=== PATIENT | female | born 1945 | race Two or more races ===

== ENCOUNTER 2021-09-18 07:06 | Inpatient (IN) | payer MEDICARE, MEDICAID ==
[~2021-09-18] VITALS: Ht 160 cm; Wt 85.0 kg
[2021-09-18] MEDS ORDERED: METO25 PO (07:26)
[2021-09-18] MEDS ORDERED: NIFE10 PO (07:26)
[2021-09-18] MEDS ORDERED: LOSA-382 PO (07:26)
[2021-09-18 07:39] LABS: BASOPHILS % (AUTO) 0.7 % (0.0-2.0); EOSINOPHILS % (AUTO) 1.9 % (1.0-6.0); HEMOGLOBIN 13.8 g/dL (12.0-16.0); LYMPHOCYTES # (AUTO) 2.3 K/uL (1.0-4.8); LYMPHOCYTES % (AUTO) 33.3 % (22.0-44.0); MEAN CORPUSCULAR HEMOGLOBIN 28.7 pg (26.0-34.0); MEAN CORPUSCULAR HGB CONC 34.4 G/dL (31.0-37.0); MEAN CORPUSCULAR VOLUME 83 fL (80-100); MONOCYTES # (AUTO) 0.6 K/uL (0.1-1.0); MONOCYTES % (AUTO) 8.7 % (2.0-9.0); NEUTROPHILS # (AUTO) 3.9 K/uL (1.8-7.7); NEUTROPHILS % (AUTO) 55.4 % (40.0-70.0); PLATELET COUNT (AUTO) 181 K/uL (150-450); RED CELL DISTRIBUTION WIDTH 13.8 % (11.5-14.5)
[2021-09-18 07:48] LABS: ANION GAP 7 mmol/L (8-16); CALCIUM, TOTAL 9.2 mg/dL (8.8-10.5); CARBON DIOXIDE 25 mmol/L (22-29); CHLORIDE 105 mmol/L (98-107); CREATININE 0.62 mg/dL (0.60-1.30); GLUCOSE,RANDOM 127 mg/dL (70-110); POTASSIUM 3.6 mmol/L (3.5-5.1); SODIUM SERUM 137 mmol/L (136-145); UREA NITROGEN, BLOOD 18 mg/dL (7-18)
[2021-09-18 07:49] LABS: GLOMERULAR FILTR. RATE CALC > 60 mL/min (>60)
[2021-09-18 07:54] LABS: ALANINE AMINOTRANSFERASE 21 U/L (12-78); ALBUMIN 3.8 g/dL (3.4-5.0); ALKALINE PHOSPHATASE 100 U/L (46-116); ASPARTATE AMINOTRANSFERASE 19 U/L (15-37); BILIRUBIN,TOTAL 0.4 mg/dL (0.1-1.0); CREATINE KINASE, TOTAL ONLY 47 U/L (26-192); TOTAL PROTEIN, SERUM 7.2 g/dL (6.4-8.2)
[2021-09-18 08:05] LABS: B-TYPE NATRIURETIC PEPTIDE 199 pg/mL (0-100)
[2021-09-18 08:17] LABS: COVID AG,FIA SOURCE NASOPHARYNGEAL
[2021-09-18 08:21] LABS: PROTHROMBIN TIME 10.3 SEC (9.4-11.6)
[2021-09-18] MEDS ORDERED: IOHEXOL 300 MG/ML 150 ML VIAL ONE ×2 (08:58→11:32)
[2021-09-18] MEDS ORDERED: IOHEXOL 300 MG/ML 100 ML VIAL ONE (08:58)
[2021-09-18] MEDS ORDERED: SODIUM BICARBONATE 50 MEQ/50 ML VIAL ONE (08:58)
[2021-09-18] MEDS ORDERED: IOHEXOL 300 MG/ML 50 ML VIAL ONE (08:58)
[2021-09-18] MEDS ORDERED: LIDOCAINE/PF 1% 30 ML VIAL ONE ×2 (08:58→10:30)
[2021-09-18] MEDS ORDERED: HEPARIN SODIUM 1000 UNITS/NS 1,000 ML ONE (08:58)
[2021-09-18] MEDS ORDERED: ACETAMINOPHEN 325 MG TABLET PO PRN ×2 (09:00→13:00)
[2021-09-18] MEDS ORDERED: 0.9% SODIUM CHLORIDE 10 ML SYRINGE IVP PRN (09:00)
[2021-09-18] MEDS ORDERED: ONDANSETRON HCL 4 MG/2 ML VIAL IVP PRN ×2 (09:00→13:00)
[2021-09-18 09:10] VITALS: BP 190/87
[2021-09-18] MEDS ORDERED: MIDAZOLAM HCL 2 MG/2 ML VIAL ONE ×2 (09:18→11:35)
[2021-09-18] MEDS ORDERED: FentaNYL CITRATE PF 100 MCG/2 ML VIAL ONE ×3 (09:18→12:04)
[2021-09-18] MEDS ORDERED: FentaNYL CITRATE PF 100 MCG/2 ML VIAL IVP ONE ×9 (09:30→12:45)
[2021-09-18] MEDS ORDERED: LIDOCAINE 1% 30 ML/SOD BICARB 8.4% 4 ML SQ ONE ×2 (09:30→10:45)
[2021-09-18] MEDS ORDERED: SODIUM CHLORIDE 0.9% 500 ML IV ONE (09:30)
[2021-09-18] MEDS ORDERED: IOHEXOL 300 MG/ML 150 ML VIAL ICOR ONE (09:30)
[2021-09-18] MEDS ORDERED: MIDAZOLAM HCL 2 MG/2 ML VIAL IVP ONE ×7 (09:30→12:30)
[2021-09-18] MEDS ORDERED: HEPARIN SODIUM 1000 UNITS/NS 1,000 ML IARTER ONE (09:30)
[2021-09-18] MEDS ORDERED: HEPARIN SODIUM,PORCINE 5,000 UNITS/ML VIAL IVP ONE ×6 (09:45→12:00)
[2021-09-18] MEDS ORDERED: NITROGLYCERIN 50 MG/D5% WATER 250 ML ONE (09:57)
[2021-09-18] MEDS ORDERED: VERAPAMIL HCL 2.5 MG/ML 2 ML VIAL ONE (09:59)
[2021-09-18] MEDS ORDERED: HEPARIN SODIUM 1000 UNITS/NS 500 ML ONE (11:19)
[2021-09-18] MEDS ORDERED: NITROGLYCERIN 400 MCG/SUBLINGUAL SPRAY 4.9 GM BOTTLE SL ONE ×3 (12:22→12:30)
[2021-09-18] MEDS ORDERED: IOHEXOL 300 MG/ML 100 ML VIAL ICOR ONE (12:30)
[2021-09-18] MEDS ORDERED: TICAGRELOR 90 MG TABLET PO ONE (12:45)
[2021-09-18] MEDS ORDERED: MORPHINE SULFATE 2 MG/ML SYRINGE IVP PRN (13:00)
[2021-09-18] MEDS ORDERED: ZOLPIDEM TARTRATE 5 MG TABLET PO PRN (13:00)
[2021-09-18] MEDS ORDERED: HYDROCODONE/ACETAMINOPHEN 5-325 MG TABLET PO PRN (13:00)
[2021-09-18] MEDS ORDERED: BISACODYL 10 MG RECTAL RECTAL SUPPOSITORY PR PRN (13:00)
[2021-09-18] MEDS ORDERED: MAGNESIUM HYDROXIDE SUSPENSION 30 ML UDCUP PO PRN (13:00)
[2021-09-18 15:06] VITALS: BP 149/71
[2021-09-18 19:35] VITALS: BP 136/64
[2021-09-18] MEDS: TICAGRELOR 90 MG TABLET PO SCH (20:36)
[2021-09-18] MEDS: DOCUSATE SODIUM 100 MG CAPSULE PO SCH (20:36)
[2021-09-18] MEDS ORDERED: TICAGRELOR 90 MG TABLET PO SCH (21:00)
[2021-09-18 23:40] VITALS: BP 150/76
[2021-09-19 03:34] VITALS: BP 123/50
[2021-09-19 06:34] LABS: BASOPHILS % (AUTO) 0.3 % (0.0-2.0); EOSINOPHILS % (AUTO) 0.7 % (1.0-6.0); HEMATOCRIT 33.5 % (36-46); HEMOGLOBIN 11.3 g/dL (12.0-16.0); LYMPHOCYTES # (AUTO) 2.4 K/uL (1.0-4.8); LYMPHOCYTES % (AUTO) 27.9 % (22.0-44.0); MEAN CORPUSCULAR HEMOGLOBIN 28.4 pg (26.0-34.0); MEAN CORPUSCULAR HGB CONC 33.9 G/dL (31.0-37.0); MEAN CORPUSCULAR VOLUME 84 fL (80-100); MONOCYTES # (AUTO) 0.7 K/uL (0.1-1.0); MONOCYTES % (AUTO) 7.9 % (2.0-9.0); NEUTROPHILS # (AUTO) 5.4 K/uL (1.8-7.7); NEUTROPHILS % (AUTO) 63.2 % (40.0-70.0); PLATELET COUNT (AUTO) 149 K/uL (150-450); RED BLOOD CELL COUNT(AUTO) 3.99 MIL/uL (4.00-5.20); RED CELL DISTRIBUTION WIDTH 14.2 % (11.5-14.5)
[2021-09-19 06:53] LABS: ALANINE AMINOTRANSFERASE 22 U/L (12-78); ALBUMIN 3.1 g/dL (3.4-5.0); ALKALINE PHOSPHATASE 77 U/L (46-116); ANION GAP 9 mmol/L (8-16); ASPARTATE AMINOTRANSFERASE 31 U/L (15-37); BILIRUBIN,TOTAL 0.6 mg/dL (0.1-1.0); CALCIUM, TOTAL 8.7 mg/dL (8.8-10.5); CARBON DIOXIDE 28 mmol/L (22-29); CHLORIDE 103 mmol/L (98-107); CREATININE 0.67 mg/dL (0.60-1.30); GLOMERULAR FILTR. RATE CALC > 60 mL/min (>60); GLUCOSE,RANDOM 128 mg/dL (70-110); POTASSIUM 3.7 mmol/L (3.5-5.1); SODIUM SERUM 140 mmol/L (136-145); TOTAL PROTEIN, SERUM 6.3 g/dL (6.4-8.2); UREA NITROGEN, BLOOD 16 mg/dL (7-18)
[2021-09-19 07:31] VITALS: BP 147/70
[2021-09-19] MEDS: DOCUSATE SODIUM 100 MG CAPSULE PO SCH (07:55)
[2021-09-19] MEDS: TICAGRELOR 90 MG TABLET PO SCH (07:55)
[2021-09-19] MEDS ORDERED: ATORVASTATIN CALCIUM 40 MG TABLET PO SCH (09:00)
[2021-09-19] MEDS ORDERED: ASPIRIN 81 MG CHEWABLE TABLET PO SCH (09:00)
[2021-09-19] MEDS ORDERED: PANTOPRAZOLE SODIUM 40 MG DR TABLET PO SCH (09:00)
[2021-09-19 11:23] VITALS: BP 147/73
[2021-09-19 15:01] VITALS: BP 147/90
[2021-09-19] MEDS ORDERED: ATOR40TA28 PO (15:28)
[2021-09-19] MEDS ORDERED: TICA90TA PO (15:29)
[2021-09-19] MEDS ORDERED: ASPI-1450 PO (15:29)
== END 2021-09-19 16:30 | disposition home or self-care (01) | DRG 215 ==
LOC: EMS 07:08 → EDSEX 07:08 → 5N 09:02
PROVIDERS: ADMIT Internal Medicine; ATTEND Internal Medicine
PROC: 4A023N7 Measurement of Cardiac Sampling and Pressure, Left Heart, Percutaneous Approach (ICD-10-PCS; principal; 2021-09-18)
PROC: 02HA3RZ Insertion of Short-term External Heart Assist System into Heart, Percutaneous Approach (ICD-10-PCS; 2021-09-18)
PROC: 5A0221D Assistance with Cardiac Output using Impeller Pump, Continuous (ICD-10-PCS; 2021-09-18)
PROC: 02C13ZZ Extirpation of Matter from Coronary Artery, Two Arteries, Percutaneous Approach (ICD-10-PCS; 2021-09-18)
PROC: 027135Z Dilation of Coronary Artery, Two Arteries with Two Drug-eluting Intraluminal Devices, Percutaneous Approach (ICD-10-PCS; 2021-09-18)
PROC: B2111ZZ Fluoroscopy of Multiple Coronary Arteries using Low Osmolar Contrast (ICD-10-PCS; 2021-09-18)
PROC: B41F1ZZ Fluoroscopy of Right Lower Extremity Arteries using Low Osmolar Contrast (ICD-10-PCS; 2021-09-18)
PROC: B41C1ZZ Fluoroscopy of Pelvic Arteries using Low Osmolar Contrast (ICD-10-PCS; 2021-09-18)
PROC: B241ZZ3 Ultrasonography of Multiple Coronary Arteries, Intravascular (ICD-10-PCS; 2021-09-18)
DX: I25.110 Atherosclerotic heart disease of native coronary artery with unstable angina pectoris (principal); E66.9 Obesity, unspecified; I11.9 Hypertensive heart disease without heart failure; E78.5 Hyperlipidemia, unspecified; M19.90 Unspecified osteoarthritis, unspecified site; I10 Essential (primary) hypertension; Z20.822 Contact with and (suspected) exposure to COVID-19; I35.0 Nonrheumatic aortic (valve) stenosis; Z96.659 Presence of unspecified artificial knee joint; E78.00 Pure hypercholesterolemia, unspecified; Z91.013 Allergy to seafood; Z68.33 Body mass index [BMI] 33.0-33.9, adult; Z79.899 Other long term (current) drug therapy; Z95.5 Presence of coronary angioplasty implant and graft
CPT/HCPCS: 33990; 37229; 37236; 71045; 75960; 80053; 82550; 83880; 84484; 85025; 85610; 85730; 92920; 92921; 92928; 93005; 99285; J1644; J2250; J3010; J3490; Q9967; 36415-L1; 36415-TC; Z7610

== ENCOUNTER 2022-05-23 16:47 | Inpatient (IN) | payer MEDICARE, OTHER ==
[~2022-05-23] VITALS: Ht 162.6 cm; Wt 80.0 kg
[~2022-05-23 16:47] MED LIST: ASPI-1450 PO; ATOR40TA28 PO; LOSA-382 PO; METO25 PO; TICA90TA PO
[2022-05-23] MEDS ORDERED: SODIUM CHLORIDE 0.9% 1,000 ML IV ONE (17:45)
[2022-05-23] MEDS ORDERED: MORPHINE SULFATE 2 MG/ML SYRINGE IVP ONE (17:45)
[2022-05-23 18:12] LABS: COVID AG,FIA SOURCE NASOPHARYNGEAL
[2022-05-23 18:14] LABS: BASOPHILS % (AUTO) 0.5 % (0.0-2.0); EOSINOPHILS % (AUTO) 0.6 % (1.0-6.0); LYMPHOCYTES # (AUTO) 2.8 K/uL (1.0-4.8); MEAN CORPUSCULAR HEMOGLOBIN 26.1 pg (26.0-34.0); MEAN CORPUSCULAR HGB CONC 32.3 G/dL (31.0-37.0); MEAN CORPUSCULAR VOLUME 81 fL (80-100); MONOCYTES # (AUTO) 0.7 K/uL (0.1-1.0); MONOCYTES % (AUTO) 7.5 % (2.0-9.0); NEUTROPHILS # (AUTO) 5.4 K/uL (1.8-7.7); NEUTROPHILS % (AUTO) 60.4 % (40.0-70.0); PLATELET COUNT (AUTO) 387 K/uL (150-450); RED BLOOD CELL COUNT(AUTO) 4.19 MIL/uL (4.00-5.20); RED CELL DISTRIBUTION WIDTH 15.9 % (11.5-14.5)
[2022-05-23 18:24] LABS: ANION GAP 7 mmol/L (8-16); CALCIUM, TOTAL 8.8 mg/dL (8.8-10.5); CARBON DIOXIDE 28 mmol/L (22-29); CHLORIDE 97 mmol/L (98-107); CREATININE 0.61 mg/dL (0.60-1.30); GLOMERULAR FILTR. RATE CALC > 60 mL/min (>60); GLUCOSE,RANDOM 145 mg/dL (70-110); POTASSIUM 3.7 mmol/L (3.5-5.1); SODIUM SERUM 132 mmol/L (136-145); UREA NITROGEN, BLOOD 25 mg/dL (7-18)
[2022-05-23 18:30] LABS: ALANINE AMINOTRANSFERASE 12 U/L (12-78); ALBUMIN 2.2 g/dL (3.4-5.0); ALKALINE PHOSPHATASE 114 U/L (46-116); ASPARTATE AMINOTRANSFERASE 21 U/L (15-37); BILIRUBIN,TOTAL 0.5 mg/dL (0.1-1.0); TOTAL PROTEIN, SERUM 6.6 g/dL (6.4-8.2)
[2022-05-23] MEDS ORDERED: MORPHINE SULFATE 2 MG/ML SYRINGE IVP PRN (19:15)
[2022-05-23] MEDS ORDERED: ONDANSETRON HCL 4 MG/2 ML VIAL IVP PRN ×2 (19:15→20:45)
[2022-05-23] MEDS ORDERED: MAGNESIUM HYDROXIDE SUSPENSION 30 ML UDCUP PO PRN (20:45)
[2022-05-23] MEDS ORDERED: ZOLPIDEM TARTRATE 5 MG TABLET PO PRN (20:45)
[2022-05-23] MEDS ORDERED: BISACODYL 10 MG RECTAL RECTAL SUPPOSITORY PR PRN (20:45)
[2022-05-23] MEDS: DOCUSATE SODIUM 100 MG CAPSULE PO SCH (21:00)
[2022-05-23] MEDS: ATORVASTATIN CALCIUM 40 MG TABLET PO SCH (21:53)
[2022-05-23 23:46] VITALS: BP 137/65
[2022-05-23] MEDS: HEPARIN SODIUM,PORCINE 5,000 UNITS/ML VIAL SQ SCH (23:47)
[2022-05-23] MEDS: MORPHINE SULFATE 2 MG/ML SYRINGE IVP PRN (23:48)
[2022-05-24 04:55] VITALS: BP 120/58
[2022-05-24] MEDS: HEPARIN SODIUM,PORCINE 5,000 UNITS/ML VIAL SQ SCH ×3 (08:43→23:14)
[2022-05-24] MEDS: METOPROLOL TARTRATE 25 MG TABLET PO SCH (08:43)
[2022-05-24] MEDS: DOCUSATE SODIUM 100 MG CAPSULE PO SCH ×2 (08:43→21:09)
[2022-05-24] MEDS: ASPIRIN 81 MG CHEWABLE TABLET PO SCH (08:43)
[2022-05-24] MEDS: LOSARTAN POTASSIUM 50 MG TABLET PO SCH (08:43)
[2022-05-24] MEDS: PANTOPRAZOLE SODIUM 40 MG DR TABLET PO SCH (08:44)
[2022-05-24] MEDS: MORPHINE SULFATE 2 MG/ML SYRINGE IVP PRN ×3 (08:54→21:40)
[2022-05-24 11:14] VITALS: BP 100/50
[2022-05-24 12:28] LABS: BASOPHILS % (AUTO) 0.6 % (0.0-2.0); EOSINOPHILS % (AUTO) 0.6 % (1.0-6.0); HEMATOCRIT 31.3 % (36-46); HEMOGLOBIN 10.2 g/dL (12.0-16.0); LYMPHOCYTES # (AUTO) 1.9 K/uL (1.0-4.8); LYMPHOCYTES % (AUTO) 29.4 % (22.0-44.0); MEAN CORPUSCULAR HEMOGLOBIN 26.2 pg (26.0-34.0); MEAN CORPUSCULAR HGB CONC 32.5 G/dL (31.0-37.0); MEAN CORPUSCULAR VOLUME 81 fL (80-100); MONOCYTES # (AUTO) 0.6 K/uL (0.1-1.0); MONOCYTES % (AUTO) 8.6 % (2.0-9.0); NEUTROPHILS % (AUTO) 60.8 % (40.0-70.0); PLATELET COUNT (AUTO) 349 K/uL (150-450); RED BLOOD CELL COUNT(AUTO) 3.88 MIL/uL (4.00-5.20); RED CELL DISTRIBUTION WIDTH 15.8 % (11.5-14.5)
[2022-05-24 12:41] LABS: ANION GAP 6 mmol/L (8-16); CALCIUM, TOTAL 8.7 mg/dL (8.8-10.5); CARBON DIOXIDE 29 mmol/L (22-29); CHLORIDE 102 mmol/L (98-107); CREATININE 0.52 mg/dL (0.60-1.30); GLOMERULAR FILTR. RATE CALC > 60 mL/min (>60); GLUCOSE,RANDOM 120 mg/dL (70-110); POTASSIUM 3.6 mmol/L (3.5-5.1); SODIUM SERUM 137 mmol/L (136-145); UREA NITROGEN, BLOOD 12 mg/dL (7-18)
[2022-05-24] MEDS: HYDROCODONE/ACETAMINOPHEN 5-325 MG TABLET PO PRN ×2 (13:54→18:39)
[2022-05-24 15:26] VITALS: BP 114/66
[2022-05-24 20:00] VITALS: BP 120/55
[2022-05-24] MEDS: ATORVASTATIN CALCIUM 40 MG TABLET PO SCH (21:09)
[2022-05-24] MEDS: DOXYCYCLINE HYCLATE 100 MG TABLET PO SCH (21:09)
[2022-05-24] MEDS: RINGERS SOLUTION,LACTATED 1,000 ML IV SCH (21:10)
[2022-05-24] MEDS ORDERED: SODIUM CHLORIDE 0.9% IRRIG BTL 1,000 ML IRRIG ONE (21:45)
[2022-05-25] VITALS: BP 128/60
[2022-05-25] MEDS: MORPHINE SULFATE 2 MG/ML SYRINGE IVP PRN ×2 (02:02→06:23)
[2022-05-25 04:00] VITALS: BP 140/63
[2022-05-25] MEDS: RINGERS SOLUTION,LACTATED 1,000 ML IV SCH ×2 (05:57→18:41)
[2022-05-25] MEDS ORDERED: RINGERS SOLUTION,LACTATED 1,000 ML IV ONE (06:47)
[2022-05-25] MEDS ORDERED: BUPIVACAINE LIPOSOME/PF 1.3%-13.3MG/ML SUSPENSION 20 ML VIAL INJ ONE (07:15)
[2022-05-25] MEDS ORDERED: TRANEXAMIC ACID 1,000 MG in DEXTROSE 5%-WATER 50 ML IV ONE (07:15)
[2022-05-25] MEDS ORDERED: VANCOMYCIN HCL 1 GM/VIAL ONE ×2 (07:16)
[2022-05-25] MEDS ORDERED: BUPIVACAINE HCL/PF 0.5% 30 ML VIAL ONE (07:17)
[2022-05-25] MEDS ORDERED: SODIUM CL IRRIG SOLN BAG 3,000 ML IRRIG ONE (07:17)
[2022-05-25] MEDS ORDERED: LIDOCAINE/PF 1% 30 ML VIAL ONE (07:17)
[2022-05-25] MEDS ORDERED: CeFAZolin 2 GM/DEXTROSE 50 ML IV ONE (07:30)
[2022-05-25] MEDS: HEPARIN SODIUM,PORCINE 5,000 UNITS/ML VIAL SQ SCH ×3 (08:00→23:08)
[2022-05-25] MEDS ORDERED: MEPERIDINE-PF 25 MG/ML VIAL IVP PRN (08:45)
[2022-05-25] MEDS ORDERED: FentaNYL CITRATE PF 100 MCG/2 ML VIAL IVP PRN (08:45)
[2022-05-25] MEDS ORDERED: HYDROmorphone HCL 2 MG/ML SYRINGE IVP PRN (08:45)
[2022-05-25] MEDS: LOSARTAN POTASSIUM 50 MG TABLET PO SCH (09:00)
[2022-05-25] MEDS: METOPROLOL TARTRATE 25 MG TABLET PO SCH (09:00)
[2022-05-25] MEDS: PANTOPRAZOLE SODIUM 40 MG DR TABLET PO SCH (09:00)
[2022-05-25] MEDS: DOXYCYCLINE HYCLATE 100 MG TABLET PO SCH ×2 (09:00→20:36)
[2022-05-25] MEDS: ASPIRIN 81 MG CHEWABLE TABLET PO SCH (09:00)
[2022-05-25] MEDS: DOCUSATE SODIUM 100 MG CAPSULE PO SCH ×2 (09:00→20:36)
[2022-05-25] MEDS ORDERED: FentaNYL CITRATE PF 100 MCG/2 ML VIAL ONE (10:22)
[2022-05-25] MEDS: CeFAZolin 1 GM/DEXTROSE 50 ML IV SCH ×2 (11:00→18:44)
[2022-05-25 12:25] VITALS: BP 108/61
[2022-05-25 16:08] VITALS: BP 104/62
[2022-05-25 19:46] VITALS: BP 118/64
[2022-05-25] MEDS: OXYGEN THERAPY IH SCH (20:35)
[2022-05-25] MEDS: ATORVASTATIN CALCIUM 40 MG TABLET PO SCH (20:36)
[2022-05-26] VITALS: BP 122/62
[2022-05-26] MEDS: RINGERS SOLUTION,LACTATED 1,000 ML IV SCH ×3 (01:05→22:01)
[2022-05-26] MEDS: MORPHINE SULFATE 2 MG/ML SYRINGE IVP PRN ×5 (01:08→22:39)
[2022-05-26] MEDS: CeFAZolin 1 GM/DEXTROSE 50 ML IV SCH ×2 (03:36→11:26)
[2022-05-26 04:07] VITALS: BP 104/51
[2022-05-26] MEDS ORDERED: MORPHINE SULFATE/PF 0.5 MG/ML 10 ML AMP IVP ONE (06:49)
[2022-05-26] MEDS ORDERED: MORPHINE SULFATE 4 MG/ML SYRINGE IVP ONE (06:49)
[2022-05-26] MEDS ORDERED: FentaNYL CITRATE PF 100 MCG/2 ML VIAL IVP ONE (06:49)
[2022-05-26 08:03] VITALS: BP 117/78
[2022-05-26] MEDS: OXYGEN THERAPY IH SCH ×2 (09:51→20:28)
[2022-05-26] MEDS: ASPIRIN 81 MG CHEWABLE TABLET PO SCH (09:52)
[2022-05-26] MEDS: LOSARTAN POTASSIUM 50 MG TABLET PO SCH (09:52)
[2022-05-26] MEDS: ACETAMINOPHEN 325 MG TABLET PO PRN ×2 (09:52→15:46)
[2022-05-26] MEDS: METOPROLOL TARTRATE 25 MG TABLET PO SCH (09:52)
[2022-05-26] MEDS: DOXYCYCLINE HYCLATE 100 MG TABLET PO SCH ×2 (09:52→20:27)
[2022-05-26] MEDS: PANTOPRAZOLE SODIUM 40 MG DR TABLET PO SCH (09:52)
[2022-05-26] MEDS: DOCUSATE SODIUM 100 MG CAPSULE PO SCH ×2 (09:52→20:27)
[2022-05-26] MEDS: HEPARIN SODIUM,PORCINE 5,000 UNITS/ML VIAL SQ SCH ×3 (09:53→23:49)
[2022-05-26 12:15] VITALS: BP 102/48
[2022-05-26 15:21] VITALS: BP 102/50
[2022-05-26 20:05] VITALS: BP 110/57
[2022-05-26] MEDS: ATORVASTATIN CALCIUM 40 MG TABLET PO SCH (20:27)
[2022-05-26 20:49] LABS: BASOPHILS % (AUTO) 0.3 % (0.0-2.0); EOSINOPHILS % (AUTO) 0.5 % (1.0-6.0); HEMATOCRIT 24.3 % (36-46); HEMOGLOBIN 7.9 g/dL (12.0-16.0); LYMPHOCYTES # (AUTO) 2.1 K/uL (1.0-4.8); LYMPHOCYTES % (AUTO) 27.7 % (22.0-44.0); MEAN CORPUSCULAR HEMOGLOBIN 26.5 pg (26.0-34.0); MEAN CORPUSCULAR HGB CONC 32.7 G/dL (31.0-37.0); MEAN CORPUSCULAR VOLUME 81 fL (80-100); MONOCYTES # (AUTO) 0.7 K/uL (0.1-1.0); MONOCYTES % (AUTO) 8.6 % (2.0-9.0); NEUTROPHILS # (AUTO) 4.8 K/uL (1.8-7.7); NEUTROPHILS % (AUTO) 62.9 % (40.0-70.0); PLATELET COUNT (AUTO) 323 K/uL (150-450); RED CELL DISTRIBUTION WIDTH 15.6 % (11.5-14.5)
[2022-05-27] VITALS (7 sets, daily range): BP systolic 104–132; BP diastolic 48–61
[2022-05-27] MEDS: ACETAMINOPHEN 325 MG TABLET PO PRN (03:15)
[2022-05-27] MEDS ORDERED: EPHEDrine SULFATE 50 MG/ML VIAL IM ONE (05:50)
[2022-05-27] MEDS ORDERED: 0.9% SODIUM CHLORIDE 10 ML VIAL IVP ONE (05:50)
[2022-05-27] MEDS ORDERED: DEXAMETHASONE SOD PHOS 4 MG/ML VIAL IVP ONE (05:50)
[2022-05-27] MEDS ORDERED: ROCURONIUM BROMIDE 10 MG/ML 5 ML VIAL IVP ONE (05:50)
[2022-05-27] MEDS ORDERED: LIDOCAINE/PF 2% 5 ML VIAL IM ONE (05:50)
[2022-05-27] MEDS ORDERED: PROPOFOL 1% 20 ML VIAL IVP ONE (05:50)
[2022-05-27] MEDS ORDERED: ONDANSETRON HCL 4 MG/2 ML VIAL IVP ONE (05:50)
[2022-05-27] MEDS: OXYGEN THERAPY IH SCH ×2 (08:00→20:25)
[2022-05-27] MEDS: RINGERS SOLUTION,LACTATED 1,000 ML IV SCH (09:35)
[2022-05-27] MEDS: ASPIRIN 81 MG CHEWABLE TABLET PO SCH (09:36)
[2022-05-27] MEDS: DOCUSATE SODIUM 100 MG CAPSULE PO SCH ×2 (09:36→20:25)
[2022-05-27] MEDS: LOSARTAN POTASSIUM 50 MG TABLET PO SCH (09:36)
[2022-05-27] MEDS: DOXYCYCLINE HYCLATE 100 MG TABLET PO SCH ×2 (09:36→20:25)
[2022-05-27] MEDS: PANTOPRAZOLE SODIUM 40 MG DR TABLET PO SCH (09:36)
[2022-05-27] MEDS: METOPROLOL TARTRATE 25 MG TABLET PO SCH (09:36)
[2022-05-27] MEDS: HEPARIN SODIUM,PORCINE 5,000 UNITS/ML VIAL SQ SCH ×2 (09:36→16:43)
[2022-05-27 10:23] LABS: BASOPHILS % (AUTO) 0.6 % (0.0-2.0); EOSINOPHILS % (AUTO) 1.1 % (1.0-6.0); HEMATOCRIT 25.3 % (36-46); HEMOGLOBIN 8.2 g/dL (12.0-16.0); LYMPHOCYTES # (AUTO) 1.8 K/uL (1.0-4.8); LYMPHOCYTES % (AUTO) 28.2 % (22.0-44.0); MEAN CORPUSCULAR HEMOGLOBIN 26.3 pg (26.0-34.0); MEAN CORPUSCULAR HGB CONC 32.3 G/dL (31.0-37.0); MEAN CORPUSCULAR VOLUME 81 fL (80-100); MONOCYTES # (AUTO) 0.5 K/uL (0.1-1.0); MONOCYTES % (AUTO) 7.8 % (2.0-9.0); NEUTROPHILS # (AUTO) 3.9 K/uL (1.8-7.7); NEUTROPHILS % (AUTO) 62.3 % (40.0-70.0); PLATELET COUNT (AUTO) 328 K/uL (150-450); RED BLOOD CELL COUNT(AUTO) 3.11 MIL/uL (4.00-5.20); RED CELL DISTRIBUTION WIDTH 15.8 % (11.5-14.5)
[2022-05-27] MEDS: MORPHINE SULFATE 2 MG/ML SYRINGE IVP PRN (15:40)
[2022-05-27] MEDS: ATORVASTATIN CALCIUM 40 MG TABLET PO SCH (20:25)
[2022-05-28] MEDS: RINGERS SOLUTION,LACTATED 1,000 ML IV SCH ×3 (00:24→12:47)
[2022-05-28] MEDS: HEPARIN SODIUM,PORCINE 5,000 UNITS/ML VIAL SQ SCH ×2 (00:24→07:54)
[2022-05-28 04:17] VITALS: BP 105/50
[2022-05-28 07:39] VITALS: BP 110/52
[2022-05-28] MEDS: PANTOPRAZOLE SODIUM 40 MG DR TABLET PO SCH (07:53)
[2022-05-28] MEDS: ASPIRIN 81 MG CHEWABLE TABLET PO SCH (07:53)
[2022-05-28] MEDS: DOCUSATE SODIUM 100 MG CAPSULE PO SCH ×2 (07:53→20:27)
[2022-05-28] MEDS: LOSARTAN POTASSIUM 50 MG TABLET PO SCH (07:53)
[2022-05-28] MEDS: METOPROLOL TARTRATE 25 MG TABLET PO SCH (07:53)
[2022-05-28] MEDS: HYDROCODONE/ACETAMINOPHEN 5-325 MG TABLET PO PRN ×3 (07:54→20:28)
[2022-05-28] MEDS: OXYGEN THERAPY IH SCH ×2 (07:59→20:00)
[2022-05-28] MEDS: DOXYCYCLINE HYCLATE 100 MG TABLET PO SCH ×2 (12:44→20:27)
[2022-05-28 15:21] VITALS: BP 122/58
[2022-05-28] MEDS: ENOXAPARIN SODIUM 40 MG/0.4 ML PF SYRINGE SQ SCH (16:54)
[2022-05-28] MEDS: MORPHINE SULFATE 2 MG/ML SYRINGE IVP PRN (16:55)
[2022-05-28] MEDS ORDERED: MINERAL OIL 133 ML ENEMA PR PRN (18:30)
[2022-05-28 19:44] VITALS: BP 131/54
[2022-05-28] MEDS: ATORVASTATIN CALCIUM 40 MG TABLET PO SCH (20:27)
[2022-05-29 04:10] VITALS: BP 115/58
[2022-05-29] MEDS: MORPHINE SULFATE 2 MG/ML SYRINGE IVP PRN (05:33)
[2022-05-29] MEDS: RINGERS SOLUTION,LACTATED 1,000 ML IV SCH (05:33)
[2022-05-29] MEDS: OXYGEN THERAPY IH SCH (08:00)
[2022-05-29 08:21] VITALS: BP 133/64
[2022-05-29] MEDS: ENOXAPARIN SODIUM 40 MG/0.4 ML PF SYRINGE SQ SCH (08:29)
[2022-05-29] MEDS: ASPIRIN 81 MG CHEWABLE TABLET PO SCH (08:31)
[2022-05-29] MEDS: LOSARTAN POTASSIUM 50 MG TABLET PO SCH (08:32)
[2022-05-29] MEDS: DOXYCYCLINE HYCLATE 100 MG TABLET PO SCH (08:32)
[2022-05-29] MEDS: DOCUSATE SODIUM 100 MG CAPSULE PO SCH (08:32)
[2022-05-29] MEDS: METOPROLOL TARTRATE 25 MG TABLET PO SCH (08:32)
[2022-05-29] MEDS: PANTOPRAZOLE SODIUM 40 MG DR TABLET PO SCH (08:32)
[2022-05-29 08:34] VITALS: BP 133/64
[2022-05-29] MEDS: HYDROCODONE/ACETAMINOPHEN 5-325 MG TABLET PO PRN ×2 (08:35→13:49)
[2022-05-29 11:51] LABS: BASOPHILS % (AUTO) 0.5 % (0.0-2.0); EOSINOPHILS % (AUTO) 1.1 % (1.0-6.0); HEMATOCRIT 25.1 % (36-46); HEMOGLOBIN 8.2 g/dL (12.0-16.0); LYMPHOCYTES # (AUTO) 2.6 K/uL (1.0-4.8); LYMPHOCYTES % (AUTO) 36.6 % (22.0-44.0); MEAN CORPUSCULAR HEMOGLOBIN 26.4 pg (26.0-34.0); MEAN CORPUSCULAR HGB CONC 32.6 G/dL (31.0-37.0); MEAN CORPUSCULAR VOLUME 81 fL (80-100); MONOCYTES # (AUTO) 0.6 K/uL (0.1-1.0); MONOCYTES % (AUTO) 7.8 % (2.0-9.0); NEUTROPHILS # (AUTO) 3.8 K/uL (1.8-7.7); PLATELET COUNT (AUTO) 344 K/uL (150-450); RED CELL DISTRIBUTION WIDTH 15.6 % (11.5-14.5)
[2022-05-29 12:00] LABS: ANION GAP 5 mmol/L (8-16); CALCIUM, TOTAL 7.9 mg/dL (8.8-10.5); CARBON DIOXIDE 30 mmol/L (22-29); CHLORIDE 100 mmol/L (98-107); CREATININE 0.61 mg/dL (0.60-1.30); GLOMERULAR FILTR. RATE CALC > 60 mL/min (>60); GLUCOSE,RANDOM 121 mg/dL (70-110); POTASSIUM 3.6 mmol/L (3.5-5.1); SODIUM SERUM 135 mmol/L (136-145); UREA NITROGEN, BLOOD 11 mg/dL (7-18)
[2022-05-29] MEDS ORDERED: DOCU-385 PO (12:25)
[2022-05-29] MEDS ORDERED: PANT-31 PO (12:26)
[2022-05-29] MEDS ORDERED: ENOX40SY14 SQ (12:26)
[2022-05-29] MEDS ORDERED: DOXY-354 PO (12:26)
[2022-05-29] MEDS ORDERED: ACET-2247 PO (12:27)
[2022-05-29] MEDS ORDERED: MAGN-169 PO (12:28)
[2022-05-29] MEDS ORDERED: BISA10SU11 PR (12:28)
[2022-05-29 15:34] VITALS: BP 130/68
== END 2022-05-29 16:12 | DRG 522 ==
LOC: EMS 16:52 → 5S 20:54 → 6S 05-28 01:01
PROVIDERS: ADMIT Internal Medicine; ATTEND Internal Medicine
PROC: 0SRR0JZ Replacement of Right Hip Joint, Femoral Surface with Synthetic Substitute, Open Approach (ICD-10-PCS; principal; 2022-05-25 07:30)
DX: S72.141A Displaced intertrochanteric fracture of right femur, initial encounter for closed fracture (principal); Z16.12 Extended spectrum beta lactamase (ESBL) resistance; N39.0 Urinary tract infection, site not specified; E44.0 Moderate protein-calorie malnutrition; M48.56XA Collapsed vertebra, not elsewhere classified, lumbar region, initial encounter for fracture; L03.115 Cellulitis of right lower limb; L03.116 Cellulitis of left lower limb; Z20.822 Contact with and (suspected) exposure to COVID-19; D63.8 Anemia in other chronic diseases classified elsewhere; E11.51 Type 2 diabetes mellitus with diabetic peripheral angiopathy without gangrene; S72.041A Displaced fracture of base of neck of right femur, initial encounter for closed fracture; I10 Essential (primary) hypertension; W18.39XA Other fall on same level, initial encounter; Z96.659 Presence of unspecified artificial knee joint; M16.0 Bilateral primary osteoarthritis of hip; E66.01 Morbid (severe) obesity due to excess calories; E78.00 Pure hypercholesterolemia, unspecified; I25.10 Atherosclerotic heart disease of native coronary artery without angina pectoris; Z59.00 Homelessness unspecified; Z79.82 Long term (current) use of aspirin; Z86.19 Personal history of other infectious and parasitic diseases; Z91.81 History of falling; Z95.5 Presence of coronary angioplasty implant and graft; Z68.30 Body mass index [BMI] 30.0-30.9, adult; Z91.013 Allergy to seafood; Z79.899 Other long term (current) drug therapy; Y93.89 Activity, other specified; Y92.89 Other specified places as the place of occurrence of the external cause; Y99.8 Other external cause status
CPT/HCPCS: 71045; 73502; 80048; 80053; 84484; 85025; 87081; 93005; 93306; 97110; 97163; 97167; 97530; 97535; 99285; C9290; J0690; J1100; J1644; J1650; J2270; J2274; J2405; J2704; J3010; J3370; J3490; J7060; J7120; 36415-L1; 36415-TC; C1716; Z7610